=== PATIENT | male | born 1995 | race Caucasian/White ===

== ENCOUNTER 2016-09-22 14:20 | Emergency (ER) | payer SELFPAY | END 2016-09-22 17:04 | disposition left against medical advice (07) | LOC: D.ER 14:20 | DX: R52 Pain, unspecified (principal) ==

== ENCOUNTER 2017-04-14 11:07 | Emergency (ER) | payer SELFPAY | END 2017-04-14 12:30 | disposition home or self-care (01) | LOC: D.ER 11:07 | DX: S39.012A Strain of muscle, fascia and tendon of lower back, initial encounter (principal); X58.XXXA Exposure to other specified factors, initial encounter; Y93.89 Activity, other specified; Y92.89 Other specified places as the place of occurrence of the external cause ==

== ENCOUNTER 2017-05-28 12:58 | Emergency (ER) | payer MEDICAID | END 2017-05-28 15:45 | disposition left against medical advice (07) | LOC: D.ER 12:58 | DX: M54.5 Low back pain (principal) ==

== ENCOUNTER 2018-06-03 11:58 | Emergency (ER) | payer SELFPAY ==
[~2018-06-03] VITALS: Ht 188 cm; Wt 102.3 kg
[2018-06-03 12:05] VITALS: Ht 188 cm; Wt 102.3 kg
[2018-06-03] MEDS ORDERED: BUPRENORPHIN-N1 EACH SL (12:06)
[2018-06-03 13:32] LABS: ALBUMIN 3.9 g/dL (3.4-5.0); ALKALINE PHOSPHATASE 95 U/L (46-116); ALT (SGPT) 46 U/L (10-68); BILIRUBIN - TOTAL 0.76 mg/dL (0.2-1.3); CALC OSMOLALITY 272 mosm/kg (275-300); CALCIUM 8.6 mg/dL (8.5-10.1); CARBON DIOXIDE 28.3 mmol/L (21.0-32.0); CHLORIDE - SERUM 104 mmol/L (98-107); CREATININE - SERUM 0.9 mg/dL (0.6-1.3); GLUCOSE 99 mg/dL (74-106); POTASSIUM - SERUM 4.3 mmol/L (3.5-5.1); PROTEIN - SERUM 7.2 g/dL (6.4-8.2); SODIUM 137 mmol/L (136-145); UREA NITROGEN 11 mg/dL (7-18); eGFR NON AFRICAN AMERICAN > 90 mL/min (90-120)
[2018-06-03 13:44] LABS: THYROID STIMULATING HORMONE 1.12 uIU/mL (0.36-3.74)
[2018-06-03 13:53] LABS: HEMATOCRIT 42.1 % (42.0-54.0); HEMOGLOBIN 15.1 g/dL (13.5-17.5); LYMPHOCYTES 31.8 % (15-50); MCH 30.4 pg (26.0-34.0); MCHC 35.9 g/dL (31.0-37.0); MCV 84.9 fL (80.0-100.0); MEAN PLATELET VOLUME 9.7 fL (7.4-10.4); NEUTROPHILS 63.3 % (40-80); PLATELET COUNT 248 10x3/uL (130-400); RBC 4.96 10x6/uL (4.20-6.10); RDW 12.2 % (11.5-14.5); WBC 5.8 10x3/uL (4.8-10.8)
[2018-06-03] MEDS ORDERED: ATIVAN1 MG PO (14:03)
[2018-06-03 15:08] VITALS: BP 122/73
== END 2018-06-03 15:09 | disposition home or self-care (01) ==
LOC: D.ER 11:58
PROVIDERS: Family Medicine
DX: F41.9 Anxiety disorder, unspecified (principal); R09.89 Other specified symptoms and signs involving the circulatory and respiratory systems

== ENCOUNTER 2018-09-16 17:39 | Emergency (ER) | payer BC ==
[~2018-09-16] VITALS: Ht 188 cm; Wt 104.5 kg
[~2018-09-16 17:39] MED LIST: ATIVAN1 MG PO; BUPRENORPHIN-N1 EACH SL
[2018-09-16 17:43] VITALS: BP 123/72; Ht 188 cm; Wt 104.5 kg
[2018-09-16 18:30] LABS: BASOPHILS 0.3 % (0-2); HEMATOCRIT 42.7 % (42.0-54.0); HEMOGLOBIN 15.3 g/dL (13.5-17.5); IMMATURE GRANULOCYTES 0.3 % (0-5); LYMPHOCYTES 38.5 % (15-50); MCH 30.7 pg (26.0-34.0); MCHC 35.8 g/dL (31.0-37.0); MCV 85.7 fL (80.0-100.0); MONOCYTES 4.4 % (2-11); NEUTROPHILS 53.5 % (40-80); PLATELET COUNT 240 10x3/uL (130-400); RBC 4.98 10x6/uL (4.20-6.10); WBC 5.9 10x3/uL (4.8-10.8)
[2018-09-16 18:42] LABS: APPEARANCE CLEAR (CLEAR); COLOR YELLOW (YELLOW); GLUCOSE NEGATIVE (NEGATIVE); NITRITE NEGATIVE (NEGATIVE); PROTEIN NEGATIVE (NEGATIVE)
[2018-09-16 18:43] LABS: BILIRUBIN NEGATIVE (NEGATIVE); KETONE NEGATIVE (NEGATIVE); UROBILINOGEN NORMAL (NORMAL)
[2018-09-16 18:49] LABS: ALBUMIN 4.1 g/dL (3.4-5.0); ALKALINE PHOSPHATASE 84 U/L (46-116); ALT (SGPT) 52 U/L (10-68); AMYLASE - SERUM 36 U/L (25-115); BILIRUBIN - TOTAL 0.61 mg/dL (0.2-1.3); CALC OSMOLALITY 282 mosm/kg (275-300); CALCIUM 8.8 mg/dL (8.5-10.1); CARBON DIOXIDE 30.2 mmol/L (21.0-32.0); CHLORIDE - SERUM 105 mmol/L (98-107); CREATININE - SERUM 1.1 mg/dL (0.6-1.3); GLUCOSE 84 mg/dL (74-106); LIPASE 105 U/L (73-393); POTASSIUM - SERUM 3.9 mmol/L (3.5-5.1); PROTEIN - SERUM 7.4 g/dL (6.4-8.2); SODIUM 143 mmol/L (136-145); UREA NITROGEN 10 mg/dL (7-18); eGFR NON AFRICAN AMERICAN 87 mL/min (90-120)
[2018-09-16] MEDS ORDERED: ZOFRAN ODT4 MG/UDTAB PO (20:28)
[2018-09-16] MEDS ORDERED: LOMOTIL 2.5-0.1 EAC1 PO (20:28)
[2018-09-16] MEDS ORDERED: ATIVAN1 MG PO (20:30)
== END 2018-09-16 20:48 | disposition home or self-care (01) ==
LOC: D.ER 17:39
PROVIDERS: Emergency Medicine
DX: R10.30 Lower abdominal pain, unspecified (principal); F41.1 Generalized anxiety disorder; A08.4 Viral intestinal infection, unspecified; F17.200 Nicotine dependence, unspecified, uncomplicated

== ENCOUNTER 2019-07-22 09:15 | Emergency (ER) | payer BC ==
[~2019-07-22] VITALS: Ht 188 cm; Wt 104.5 kg
[~2019-07-22 09:15] MED LIST changes: +LOMOTIL 2.5-0.1 EAC1 PO; +ZOFRAN ODT4 MG/UDTAB PO
[2019-07-22 09:20] VITALS: Ht 188 cm; Wt 104.5 kg
[2019-07-22 09:39] LABS: APPEARANCE CLEAR (CLEAR); BILIRUBIN NEGATIVE (NEGATIVE); COLOR YELLOW (YELLOW); GLUCOSE NEGATIVE (NEGATIVE); KETONE NEGATIVE (NEGATIVE); NITRITE NEGATIVE (NEGATIVE); PROTEIN NEGATIVE (NEGATIVE); UROBILINOGEN NORMAL (NORMAL)
[2019-07-22] MEDS ORDERED: TORADOL10 MG PO (10:32)
[2019-07-22] MEDS ORDERED: NEURONTIN 300300 MG PO (10:32)
[2019-07-22 11:18] VITALS: BP 121/80
== END 2019-07-22 12:00 | disposition home or self-care (01) ==
LOC: D.ER 09:15
PROVIDERS: Family Medicine
DX: M54.16 Radiculopathy, lumbar region (principal); V47.6XXA Car passenger injured in collision with fixed or stationary object in traffic accident, initial encounter; Y93.9 Activity, unspecified; Y92.9 Unspecified place or not applicable

== ENCOUNTER 2019-08-17 11:38 | Emergency (ER) | payer BC ==
[~2019-08-17] VITALS: Ht 188 cm; Wt 102.3 kg
[~2019-08-17 11:38] MED LIST changes: +NEURONTIN 300300 MG PO; +TORADOL10 MG PO
[2019-08-17 11:45] VITALS: Ht 188 cm; Wt 102.3 kg
[2019-08-17 12:18] LABS: BASOPHILS 0.1 % (0-2); EOSINOPHILS 2.4 % (0-7); HEMATOCRIT 46.7 % (42.0-54.0); HEMOGLOBIN 16.7 g/dL (13.5-17.5); IMMATURE GRANULOCYTES 0.1 % (0-5); LYMPHOCYTES 28.7 % (15-50); MCH 32.1 pg (26.0-34.0); MCHC 35.8 g/dL (31.0-37.0); MCV 89.6 fL (80.0-100.0); MEAN PLATELET VOLUME 9.5 fL (7.4-10.4); MONOCYTES 4.7 % (2-11); PLATELET COUNT 224 10x3/uL (130-400); RBC 5.21 10x6/uL (4.20-6.10); RDW 12.1 % (11.5-14.5); WBC 6.8 10x3/uL (4.8-10.8)
[2019-08-17 12:28] LABS: CALC OSMOLALITY 277 mosm/kg (275-300); CALCIUM 8.9 mg/dL (8.5-10.1); CARBON DIOXIDE 29.3 mmol/L (21.0-32.0); CHLORIDE - SERUM 104 mmol/L (98-107); CREATININE - SERUM 0.9 mg/dL (0.6-1.3); POTASSIUM - SERUM 3.7 mmol/L (3.5-5.1); SODIUM 138 mmol/L (136-145); UREA NITROGEN 11 mg/dL (7-18); eGFR NON AFRICAN AMERICAN > 90 mL/min (90-120)
[2019-08-17 12:32] LABS: GLUCOSE 145 mg/dL (74-106)
[2019-08-17 12:41] LABS: ACETAMINOPHEN 59.4 ug/mL (10.0-30.0); ALBUMIN 4.3 g/dL (3.4-5.0); ALKALINE PHOSPHATASE 88 U/L (46-116); ALT (SGPT) 53 U/L (10-68); BILIRUBIN - TOTAL 0.58 mg/dL (0.2-1.3); PROTEIN - SERUM 7.6 g/dL (6.4-8.2)
[2019-08-17 14:27] VITALS: BP 122/70
== END 2019-08-17 14:27 | disposition home or self-care (01) ==
LOC: D.ER 11:38
PROVIDERS: Emergency Medicine
DX: M54.5 Low back pain (principal); T39.1X5A Adverse effect of 4-Aminophenol derivatives, initial encounter; F41.9 Anxiety disorder, unspecified; F17.290 Nicotine dependence, other tobacco product, uncomplicated

== ENCOUNTER 2019-08-23 12:06 | Emergency (ER) | payer BC ==
[~2019-08-23] VITALS: Ht 188 cm; Wt 102.3 kg
[2019-08-23 12:12] VITALS: BP 135/75; Ht 188 cm; Wt 102.3 kg
[2019-08-23] MEDS ORDERED: KLONOPIN1 MG PO (12:14)
[2019-08-23 12:51] LABS: BASOPHILS 0.2 % (0-2); EOSINOPHILS 1.4 % (0-7); HEMATOCRIT 47.5 % (42.0-54.0); IMMATURE GRANULOCYTES 0.2 % (0-5); MCH 31.8 pg (26.0-34.0); MCHC 35.8 g/dL (31.0-37.0); MCV 88.8 fL (80.0-100.0); MEAN PLATELET VOLUME 9.4 fL (7.4-10.4); MONOCYTES 8.6 % (2-11); NEUTROPHILS 61.6 % (40-80); PLATELET COUNT 217 10x3/uL (130-400); RBC 5.35 10x6/uL (4.20-6.10); RDW 12.3 % (11.5-14.5); WBC 5.1 10x3/uL (4.8-10.8)
[2019-08-23 12:55] LABS: CALC OSMOLALITY 279 mosm/kg (275-300); CALCIUM 9.6 mg/dL (8.5-10.1); CARBON DIOXIDE 29.8 mmol/L (21.0-32.0); CHLORIDE - SERUM 102 mmol/L (98-107); CREATININE - SERUM 1.1 mg/dL (0.6-1.3); GLUCOSE 98 mg/dL (74-106); POTASSIUM - SERUM 3.9 mmol/L (3.5-5.1); SODIUM 141 mmol/L (136-145); UREA NITROGEN 10 mg/dL (7-18); eGFR NON AFRICAN AMERICAN 87 mL/min (90-120)
[2019-08-23 13:04] LABS: ALBUMIN 4.6 g/dL (3.4-5.0); ALKALINE PHOSPHATASE 91 U/L (46-116); ALT (SGPT) 43 U/L (10-68); AMYLASE - SERUM 35 U/L (25-115); BILIRUBIN - TOTAL 0.96 mg/dL (0.2-1.3); LIPASE 90 U/L (73-393); PROTEIN - SERUM 8.2 g/dL (6.4-8.2); TROPONIN-I < 0.017 ng/mL (0.000-0.060)
[2019-08-23 14:20] LABS: APPEARANCE CLEAR (CLEAR); BILIRUBIN NEGATIVE (NEGATIVE); COLOR YELLOW (YELLOW); GLUCOSE NEGATIVE (NEGATIVE); KETONE NEGATIVE (NEGATIVE); NITRITE NEGATIVE (NEGATIVE); PROTEIN NEGATIVE (NEGATIVE); SPECIFIC GRAVITY 1.015 (1.005-1.020); UROBILINOGEN NORMAL (NORMAL)
[2019-08-23] MEDS ORDERED: MIRALAX17 GM PO (14:48)
== END 2019-08-23 15:11 | disposition home or self-care (01) ==
LOC: D.ER 12:06
PROVIDERS: Family Medicine
DX: K59.00 Constipation, unspecified (principal)

== ENCOUNTER 2019-11-15 07:14 | Emergency (ER) | payer BC ==
[~2019-11-15] VITALS: Ht 188 cm; Wt 102.3 kg
[~2019-11-15 07:14] MED LIST changes: +KLONOPIN1 MG PO; +MIRALAX17 GM PO
[2019-11-15 07:19] VITALS: Ht 188 cm; Wt 102.3 kg
[2019-11-15] MEDS ORDERED: MIRALAX17 GM PO (08:54)
[2019-11-15] MEDS ORDERED: MILK OF MAGNESI30 ML PO (08:54)
[2019-11-15 09:30] VITALS: BP 133/65
[2019-11-16] MEDS ORDERED: CHRONULAC30 ML PO (19:48)
== END 2019-11-15 09:45 | disposition home or self-care (01) ==
LOC: D.ER 07:14
DX: K59.00 Constipation, unspecified (principal)

== ENCOUNTER 2019-11-16 17:39 | Emergency (ER) | payer BC ==
[~2019-11-16] VITALS: Ht 188 cm; Wt 100.0 kg
[~2019-11-16 17:39] MED LIST changes: +MILK OF MAGNESI30 ML PO
[2019-11-16 17:58] VITALS: Ht 188 cm; Wt 100.0 kg
[2019-11-16] MEDS ORDERED: CHRONULAC30 ML PO (19:48)
[2019-11-16 20:04] VITALS: BP 115/82
== END 2019-11-16 20:05 | disposition home or self-care (01) ==
LOC: D.ER 17:39
DX: K59.00 Constipation, unspecified (principal); R11.10 Vomiting, unspecified

== ENCOUNTER → 2020-02-25 | Emergency (ER) | payer BC ==
[~2020-02-25] VITALS: Ht 188 cm; Wt 97.7 kg
[~2020-02-25] MED LIST changes: +CHRONULAC30 ML PO; +VOLTAREN75 MG PO
[2020-02-25 10:41] VITALS: BP 137/82; Ht 188 cm; Wt 97.7 kg
[2020-02-25 11:02] LABS: BASOPHILS 0.2 % (0-2); EOSINOPHILS 1.5 % (0-7); HEMATOCRIT 46.2 % (42.0-54.0); HEMOGLOBIN 16.1 g/dL (13.5-17.5); IMMATURE GRANULOCYTES 0.4 % (0-5); MCH 31.2 pg (26.0-34.0); MCHC 34.8 g/dL (31.0-37.0); MCV 89.5 fL (80.0-100.0); MONOCYTES 7.6 % (2-11); NEUTROPHILS 64.3 % (40-80); PLATELET COUNT 240 10x3/uL (130-400); RBC 5.16 10x6/uL (4.20-6.10); RDW 12.6 % (11.5-14.5); WBC 8.2 10x3/uL (4.8-10.8)
[2020-02-25 11:11] LABS: CALC OSMOLALITY 278 mosm/kg (275-300); CALCIUM 9.3 mg/dL (8.5-10.1); CARBON DIOXIDE 30.7 mmol/L (21.0-32.0); CHLORIDE - SERUM 104 mmol/L (98-107); CREATININE - SERUM 1.1 mg/dL (0.6-1.3); GLUCOSE 90 mg/dL (74-106); POTASSIUM - SERUM 3.8 mmol/L (3.5-5.1); SODIUM 140 mmol/L (136-145); UREA NITROGEN 12 mg/dL (7-18); eGFR NON AFRICAN AMERICAN 86 mL/min (90-120)
[2020-02-25 11:12] LABS: INR 0.96 (0.85-1.17); PROTIME 12.7 SECONDS (11.6-15.0)
[2020-02-25 11:13] LABS: APTT 30.5 SECONDS (22.8-39.4)
[2020-02-25 11:39] LABS: ALBUMIN 4.5 g/dL (3.4-5.0); ALKALINE PHOSPHATASE 75 U/L (30-120); ALT (SGPT) 56 U/L (10-68); BILIRUBIN - TOTAL 0.83 mg/dL (0.2-1.3); CKMB 0.8 U/L (0.0-3.6); CREATINE KINASE 71 UL (21-232); MAGNESIUM - SERUM 2.1 mg/dL (1.8-2.4); PROTEIN - SERUM 7.6 g/dL (6.4-8.2)
[2020-02-25 11:42] LABS: TROPONIN-I < 0.017 ng/mL (0.000-0.060)
== END | disposition home or self-care (01) ==
LOC: D.ER 10:23
PROVIDERS: Family Medicine
DX: R07.9 Chest pain, unspecified (principal); R07.81 Pleurodynia; R05 Cough

== ENCOUNTER → 2020-04-10 10:34 | Outpatient (CLI) | payer BC ==
[2020-02-25 10:41] VITALS: BMI 27.6
== END | disposition home or self-care (01) ==
LOC: D.RAD 02-16 09:00
PROVIDERS: ATTEND Family Medicine
DX: R13.10 Dysphagia, unspecified (principal); Z87.828 Personal history of other (healed) physical injury and trauma

== ENCOUNTER 2020-05-08 16:38 | Emergency (ER) | payer BC ==
[~2020-05-08] VITALS: Ht 188 cm; Wt 102.3 kg
[2020-05-08 16:42] VITALS: BP 130/77; Ht 188 cm; Wt 102.3 kg
[2020-05-08] MEDS ORDERED: HYDROCODON-ACE1 EAC7 PO (17:26)
== END 2020-05-08 17:43 | disposition home or self-care (01) ==
LOC: D.ER 16:38
DX: S60.211A Contusion of right wrist, initial encounter (principal); W11.XXXA Fall on and from ladder, initial encounter; M25.531 Pain in right wrist